=== PATIENT | male | born 1980 | race American Indian/Alaskan Native ===

== ENCOUNTER 2020-12-10 06:52 | Emergency (ER) | payer OTHER ==
[2020-12-10] MEDS ORDERED: SODIUM CHLORIDE 0.9% 1000 ML 1,000 ML IV ONE (07:45)
[2020-12-10] MEDS ORDERED: methylPREDNISolone Sod Succinate 125 MG/2 ML INJ IV ONE (07:45)
[2020-12-10] MEDS ORDERED: diphenhydrAMINE 50 MG/ML VIAL IV ONE (07:45)
[2020-12-10] MEDS ORDERED: FAMOTIDINE 20 MG TAB PO ONE (07:45)
--- NOTE | 2020-12-10 07:49 | Emergency Department Report ---
ED Rash HPI - HPI Chief Complaint: Skin Rash Stated Complaint: ALLERGIC REACTION Time Seen by Provider: 12/10/20 07:32 Duration: Today Location: Head, Neck, Chest, Abdomen, Upper Extremities Rash Symptoms: Yes Itching, Yes Facial Swelling Severity: moderate Other History: 40-year-old -[place] male presents to the emergency room stating he has broken out in hives. Patient reports this happened about 30 to 40 minutes just prior to arrival. Patient states he got off work went home sit down to eat and then noticed that he had a black and on his left bicep that just bit him. Patient stated his arm started to swell up and then he started noticing the hives. He denies any shortness of breath chest pain difficulty swallowing did have some nausea but no vomiting. Patient states he has no known history of any allergies to medication or environmental. ED Review of Systems ROS: Stated complaint: ALLERGIC REACTION Other details as noted in HPI Comment: All other systems reviewed and negative ED Past Medical Hx - Surgical History Additional Surgical History: left ankle repair with metal; r. thumb - Social History Smoking Status: Current Every Day Smoker Substance Use Type: Alcohol - Medications Home Medications: Home Medications Medication Instructions Recorded Confirmed Last Taken Type Sulfamethoxazole/Trimethoprim 1 each PO BID #10 tablet 08/22/15 Unknown Rx [Bactrim DS TAB] methOCARBAMOL [Robaxin TAB] 500 mg PO BID #20 tab 08/22/15 Unknown Rx traMADoL [Ultram 50 MG tab] 50 mg PO Q6HR PRN #20 tablet 08/22/15 Unknown Rx Cetirizine HCl [Zyrtec 10mg tab] 10 mg PO QDAY #7 tablet 12/10/20 Unknown Rx EPINEPHrine [Epipen 2-Robbie] 0.3 mg IJ ONCE PRN #2 auto.injct 12/10/20 Unknown Rx Famotidine [Pepcid] 20 mg PO BID #6 tablet 12/10/20 Unknown Rx predniSONE [Deltasone] 40 mg PO QDAY #6 tab 12/10/20 Unknown Rx Rash Exam - Exam General: Vital signs noted. No distress. Alert and acting appropriately. HEENT: Yes Periorbital Edema, No Conjuctival Injection, No Chemosis, No Perioral Edema, No Tongue Edema, No Uvular Edema, No Compromised Airway, No Drooling Lungs: Yes Good Air Exchange, No Wheezes, No Ronchi, No Stridor, No Cough, No Labored Respirations, No Retractions, No Use of Accessory Muscles, No Other Abnormal Lung Sounds Heart: Yes Regular, No Murmur Skin: Yes Urticarial Rash, Yes Erythema, No Maculopapular Rash, No Morbilliform rash, No Bulla(e), No Excoriations, No Weeping, No Tenderness, No Edema, No Encrustations, No Other Other: Positive: Musculoskeletal Normal ED Medical Decision Making - Medical Decision Making 40-year-old -[place] male presents to the emergency room stating he has broken out in hives. Patient reports this happened about 30 to 40 minutes just prior to arrival. Patient states he got off work went home sit down to eat and then noticed that he had a black and on his left bicep that just bit him. Patient stated his arm started to swell up and then he started noticing the hives. He denies any shortness of breath chest pain difficulty swallowing did have some nausea but no vomiting. Patient states he has no known history of any allergies to medication or environmental. Order for IV insertion, normal saline, Solu-Medrol 125 mg IV, Benadryl 50 mg IV and Pepcid 40 mg p.o. Patient states that his will be picking him up but she brought him to the emergency room. Patient will be continued to be monitored. Critical care attestation.: If time is entered above; I have spent that time in minutes in the direct care of this critically ill patient, excluding procedure time. ED Disposition Clinical Impression: Hives, physical Allergic reaction Qualifiers: Encounter type: subsequent encounter Qualified Code(s): T78.40XD - Allergy, unspecified, subsequent encounter Disposition: DC-01 TO HOME OR SELFCARE Is pt being admited?: No Does the pt Need Aspirin: No Condition: Stable Instructions: Hives, [id number]-Agwb Additional Instructions: Please take medication as prescribed. Please use EpiPen if you have a severe reaction that causes you to feel as if your throat is closing up difficulty swallowing or breathing. Prescriptions: predniSONE [Deltasone] 40 mg PO QDAY #6 tab EPINEPHrine [Epipen 2-Robbie] 0.3 mg IJ ONCE PRN #2 auto.injct PRN Reason: Anaphylaxis Famotidine [Pepcid] 20 mg PO BID #6 tablet Cetirizine HCl [Zyrtec 10mg tab] 10 mg PO QDAY #7 tablet Referrals: [facility] [Provider Group] - 3-5 Days Forms: Work/School Release Form(ED)
[2020-12-10 08:23] VITALS: BP 124/73
== END 2020-12-10 10:15 | disposition home or self-care (01) ==
LOC: ED 06:52
DX: T78.40XA Allergy, unspecified, initial encounter (principal); L50.9 Urticaria, unspecified; F17.200 Nicotine dependence, unspecified, uncomplicated; Z72.89 Other problems related to lifestyle; X58.XXXA Exposure to other specified factors, initial encounter
CPT/HCPCS: 96361; 96374; 96375; 99282; J1200; J2930; J7030